=== PATIENT | male | born 1935 | race Caucasian/White ===

== ENCOUNTER → 2021-03-10 | Outpatient (CLI) | payer OTHER ==
[~2021-03-10] MED LIST: ASPIRIN81 MG PO; CENTRUM SILVER1 EAC1 PO; CLARITIN10 MG PO; DHEA25 MG PO; LANTUS SC; LEVOXYL200 MCG PO; LOVAZA1000 MG PO; MELOXICAM7.5 MG PO; METFORMIN 500500 MG PO; MEVACOR40 MG PO; NOVOLOG100 UNIT/1 SQ; PREVACID DIS; QUINAPRIL 20 MG20 M1 PO; TOPROL XL50 MG PO; TRAZODONE 150150 MG PO; TRILIPIX135 MG PO; VITAMIN D400 UNI1 PO
== END | disposition home or self-care (01) ==
LOC: SJCVC 14:16
PROVIDERS: ATTEND Internal Medicine
DX: I48.21 Permanent atrial fibrillation (principal); I25.10 Atherosclerotic heart disease of native coronary artery without angina pectoris; I50.32 Chronic diastolic (congestive) heart failure; I65.23 Occlusion and stenosis of bilateral carotid arteries; I11.0 Hypertensive heart disease with heart failure; I48.91 Unspecified atrial fibrillation; E78.5 Hyperlipidemia, unspecified; G47.33 Obstructive sleep apnea (adult) (pediatric); E11.9 Type 2 diabetes mellitus without complications; K21.9 Gastro-esophageal reflux disease without esophagitis; R44.3 Hallucinations, unspecified; Z88.8 Allergy status to other drugs, medicaments and biological substances; Z79.899 Other long term (current) drug therapy; Z95.1 Presence of aortocoronary bypass graft; Z79.01 Long term (current) use of anticoagulants